=== PATIENT | female | born 1990 | race Caucasian/White ===

== ENCOUNTER 2025-03-04 18:10 | Emergency (ER) | payer SELFPAY ==
[~2025-03-04] VITALS: Ht 170.2 cm; Wt 70.0 kg
[2025-03-04 18:25] VITALS: O2SAT 97
[2025-03-04] MEDS: ACETAMINOPHEN 325MG TABLET PO ONE (19:41)
[2025-03-04 19:52] LABS: COLOR URINE DARK YELLOW (YELLOW); GLUCOSE URINE NEGATIVE (NEGATIVE); KETONES URINE NEGATIVE (NEGATIVE); LEUKOCYTE ESTERASE URINE 2+ (NEGATIVE); NITRITE URINE POSITIVE (NEGATIVE); OCCULT BLOOD URINE 2+ (NEGATIVE); PH URINE 6.0 (4.5-8.0); PROTEIN URINE NEGATIVE (NEGATIVE); SPECIFIC GRAVITY URINE 1.004 (1.005-1.030); UROBILINOGEN URINE 1.0 E.U./dL (0.2-1.0)
[2025-03-04 19:54] LABS: UCG SCREEN NEGATIVE
[2025-03-04 19:55] LABS: UCG KIT EXPIRATION DATE 02-12-2027; UCG KIT LOT# 970990
[2025-03-04 20:10] LABS: CLARITY URINE SL HAZY (CLEAR)
[2025-03-04 20:12] LABS: RBC URINE 0-2 /hpf (0-2); WBC URINE 25-50 /hpf (0-2)
[2025-03-04 20:13] LABS: BACTERIA URINE 1+; RENAL EPITHELIAL CELLS URINE 1+ /lpf; SQUAMOUS EPITHELIAL CELL URINE 1+ /lpf (RARE/1+)
[2025-03-04] MEDS ORDERED: CEPH500C2 MT (20:13)
[2025-03-04 20:26] VITALS: BP 103/62; PULSE 86; RESP 15; TEMP 36.8; O2SAT 97
== END 2025-03-04 20:29 | disposition home or self-care (01) ==
LOC: ER 18:11
DX: N39.0 Urinary tract infection, site not specified (principal); R30.0 Dysuria; Z98.890 Other specified postprocedural states
CPT/HCPCS: 81003; 81025; 87077; 87186; 99283